=== PATIENT | female | born 1975 | race African-American/Black ===

== ENCOUNTER → 2021-06-05 | Outpatient (CLI) | payer OTHER | LOC: SLEEP 14:13 | DX: R40.0 Somnolence (principal); G47.33 Obstructive sleep apnea (adult) (pediatric) | CPT/HCPCS: 95810 ==

== ENCOUNTER → 2021-12-01 | Outpatient (CLI) | payer OTHER | LOC: KOH-I 13:57 | DX: C73 Malignant neoplasm of thyroid gland (principal); E89.0 Postprocedural hypothyroidism; R93.89 Abnormal findings on diagnostic imaging of other specified body structures | CPT/HCPCS: 76536 ==

== ENCOUNTER 2021-12-27 22:07 | Emergency (ER) | payer OTHER ==
[2021-12-27 23:11] LABS: HEMOGLOBIN 11.8 gm/dl (12.3-15.3); RED BLOOD COUNT 4.02 M/UL (4.00-5.10); WHITE BLOOD COUNT 9.8 K/UL (4.5-11.0)
[2021-12-27 23:37] LABS: BUN/CREATININE RATIO 12 (0-10)
== END 2021-12-28 02:47 | disposition home or self-care (01) ==
LOC: ER1 22:07
PROVIDERS: Nurse Practitioner
DX: R51.9 Headache, unspecified (principal); M79.641 Pain in right hand; R42 Dizziness and giddiness; E11.9 Type 2 diabetes mellitus without complications; I10 Essential (primary) hypertension; Z88.0 Allergy status to penicillin; Z88.1 Allergy status to other antibiotic agents; Z85.850 Personal history of malignant neoplasm of thyroid
CPT/HCPCS: 70450; 71045; 73130; 80053; 80076; 82550; 82553; 83605; 84484; 85025; 87040; 99284

== ENCOUNTER → 2022-01-02 | Outpatient (CLI) | payer OTHER | LOC: EXRD 08:00 | DX: I10 Essential (primary) hypertension (principal); N28.9 Disorder of kidney and ureter, unspecified | CPT/HCPCS: 93975 ==

== ENCOUNTER 2022-03-29 11:35 | Emergency (ER) | payer OTHER ==
[2022-03-29 13:20] LABS: HEMOGLOBIN 12.1 gm/dl (12.3-15.3); RED BLOOD COUNT 4.18 M/UL (4.00-5.10); WHITE BLOOD COUNT 9.5 K/UL (4.5-11.0)
[2022-03-29 13:48] LABS: BUN/CREATININE RATIO 16 (0-10)
== END 2022-03-29 16:15 | disposition home or self-care (01) ==
LOC: ER1 11:35
PROVIDERS: Physician Assistant
DX: R07.89 Other chest pain (principal); E11.9 Type 2 diabetes mellitus without complications; I10 Essential (primary) hypertension; Z85.850 Personal history of malignant neoplasm of thyroid; Z88.0 Allergy status to penicillin; Z88.1 Allergy status to other antibiotic agents
CPT/HCPCS: 71045; 80053; 82550; 82553; 84484; 85025; 93005; 99285